=== PATIENT | male | born 1975 | race African-American/Black ===

== ENCOUNTER 2024-10-10 11:19 | Inpatient (IN) | payer OTHER ==
[2024-10-10] MEDS ORDERED: MAG HYDROX/AL HYDROX/SIMETH 30 ML UNIT-DOSE CUP PO PRN (15:14)
[2024-10-10] MEDS ORDERED: IBUPROFEN 600 MG TABLET (FP) PO PRN (15:14)
[2024-10-10] MEDS ORDERED: BENZOCAINE/MENTHOL (CHLORASEPTIC ) LOZENGE MM PRN (15:14)
[2024-10-10] MEDS ORDERED: IBUPROFEN 400 MG TABLET (FP) PO PRN (15:14)
[2024-10-10] MEDS ORDERED: NALOXONE (NARCAN) HCL 4 MG/0.1 ML SPRAY NS PRN (15:14)
[2024-10-10] MEDS ORDERED: LOPERAMIDE HCL 2 MG CAPSULE PO PRN (15:14)
[2024-10-10] MEDS ORDERED: NALOXONE HCL 0.4 MG/ML VIAL IVPUSH PRN (15:14)
[2024-10-10] MEDS ORDERED: BENZONATATE 200 MG CAPSULE PO PRN (15:14)
[2024-10-10] MEDS ORDERED: guaiFENesin 600 MG TABLET.ER (FP) PO PRN (15:14)
[2024-10-10] MEDS: TUBERCULIN PPD 5 TU/0.1ML VIAL ID ONE (16:05)
[2024-10-10] MEDS ORDERED: ATORVASTATIN CA 40 MG TABLET (FP) ONE (20:23)
[2024-10-10] MEDS: ATORVASTATIN CA 80 MG TABLET (FP) PO SCH (21:12)
[2024-10-10] MEDS: THIAMINE 100 MG TABLET PO SCH (21:13)
[2024-10-10] MEDS: FAMOTIDINE 20 MG TABLET PO SCH (21:13)
[2024-10-10] MEDS: MELATONIN 5 MG TABLETS PO SCH (21:13)
[2024-10-10] MEDS: APIXABAN 5 MG TABLET PO SCH (21:13)
[2024-10-10] MEDS: SUVOREXANT 10 MG TABLET PO PRN (21:15)
[2024-10-11] MEDS: BICTEGRAV/EMTRICIT/TENOFOV (BIKTARVY) 50-200-25 MG TABLET PO SCH (07:05)
[2024-10-11] MEDS: PRENATAL VITAMINS W/ FOLIC ACID TABLET (FP) PO SCH (09:43)
[2024-10-11] MEDS: LISINOPRIL 20 MG TABLET PO SCH (09:43)
[2024-10-11] MEDS: NICOTINE 21 MG/24 HOURS TOPICAL PATCH TD SCH (09:43)
[2024-10-11] MEDS: NIFEdipine E.R 60 MG TABLET PO SCH (09:44)
[2024-10-11] MEDS: BUPRENORPHINE/NALOXONE 8 MG/2 MG FILM PACKET SL SCH (10:30)
[2024-10-11] MEDS ORDERED: ATORVASTATIN CA 40 MG TABLET (FP) ONE (19:36)
[2024-10-13] MEDS ORDERED: ATORVASTATIN CA 40 MG TABLET (FP) ONE (21:10)
[2024-10-14] MEDS: MAGNESIUM HYDROX 2400MG/30ML ORAL SUSPENSION 30 ML CUP PO PRN (15:37)
[2024-10-14] MEDS ORDERED: ATORVASTATIN CA 40 MG TABLET (FP) ONE (19:19)
[2024-10-14] MEDS: SUVOREXANT 10 MG TABLET PO PRN (21:10)
[2024-10-15] MEDS: BICTEGRAV/EMTRICIT/TENOFOV (BIKTARVY) 50-200-25 MG TABLET PO SCH (06:21)
[2024-10-15] MEDS: POLYETHYLENE GLYCOL (HEALTHYLAX) 3350 17 GM PACKET PO PRN (13:54)
[2024-10-15] MEDS ORDERED: ATORVASTATIN CA 40 MG TABLET (FP) ONE (19:33)
[2024-10-15] MEDS: METHOCARBAMOL 500 MG TABLET PO PRN (21:58)
[2024-10-16] MEDS ORDERED: ATORVASTATIN CA 40 MG TABLET (FP) ONE (19:14)
[2024-10-16] MEDS: SUVOREXANT 10 MG TABLET PO PRN (21:03)
[2024-10-17] MEDS: DOCUSATE SODIUM 100 MG CAPSULE (FP) PO SCH (11:43)
[2024-10-17] MEDS: CLOPIDOGREL BISULFATE 75 MG TABLET (FP) PO SCH (11:43)
[2024-10-17] MEDS: LACTULOSE 20 GM/30 ML UDC (FOR ORAL USE ONLY) PO PRN (11:49)
[2024-10-17] MEDS: GABAPENTIN 300 MG CAPSULE PO SCH (14:18)
[2024-10-17] MEDS: RIVAROXABAN 20 MG TABLET PO SCH (18:53)
[2024-10-17] MEDS ORDERED: ATORVASTATIN CA 40 MG TABLET (FP) ONE (18:54)
[2024-10-17] MEDS: MIRTAZAPINE 15 MG TABLET (FP) PO SCH (21:08)
[2024-10-18] MEDS: EPLERENONE 25 MG TABLET PO SCH (09:46)
[2024-10-18] MEDS: ISOSORBIDE MONONITRATE 60 MG TAB.SR.24H (FP) PO SCH (09:46)
[2024-10-18] MEDS ORDERED: ATORVASTATIN CA 40 MG TABLET (FP) ONE (18:50)
[2024-10-18] MEDS: SUVOREXANT 15 MG TABLET PO PRN (21:05)
[2024-10-18] MEDS: SACUBITRIL/VALSARTAN 97 MG-103 MG TABLET PO SCH (21:05)
[2024-10-19] MEDS ORDERED: ATORVASTATIN CA 40 MG TABLET (FP) ONE (20:05)
[2024-10-20] MEDS ORDERED: ATORVASTATIN CA 40 MG TABLET (FP) ONE (19:13)
[2024-10-21] MEDS: hydrOXYzine PAMOATE 25 MG CAPSULE (FP) PO PRN (16:52)
[2024-10-21] MEDS ORDERED: ATORVASTATIN CA 40 MG TABLET (FP) ONE (19:49)
[2024-10-21] MEDS: SUVOREXANT 15 MG TABLET PO PRN (21:05)
[2024-10-22] MEDS ORDERED: ATORVASTATIN CA 40 MG TABLET (FP) ONE (19:41)
[2024-10-23] MEDS ORDERED: ATORVASTATIN CA 40 MG TABLET (FP) ONE (19:20)
[2024-10-24] MEDS ORDERED: ATORVASTATIN CA 40 MG TABLET (FP) ONE (19:32)
[2024-10-24] MEDS: SUVOREXANT 15 MG TABLET PO PRN (21:06)
[2024-10-25] MEDS: ACETAMINOPHEN 325 MG TABLET (FP) PO PRN (18:52)
[2024-10-25] MEDS ORDERED: ATORVASTATIN CA 40 MG TABLET (FP) ONE (19:25)
[2024-10-26] MEDS ORDERED: ATORVASTATIN CA 40 MG TABLET (FP) ONE (20:14)
[2024-10-27] MEDS: MUPIROCIN CA 2% TOPICAL CREAM 15 GM TUBE TP SCH (13:57)
[2024-10-27] MEDS: AMOX TR/POT CLAV 875MG/125MG TABLETS (FP) PO SCH (16:36)
[2024-10-27] MEDS ORDERED: ATORVASTATIN CA 40 MG TABLET (FP) ONE (19:29)
[2024-10-28] MEDS ORDERED: ATORVASTATIN CA 40 MG TABLET (FP) ONE (19:15)
[2024-10-29] MEDS ORDERED: ATORVASTATIN CA 40 MG TABLET (FP) ONE (19:46)
[2024-10-29] MEDS: SUVOREXANT 20 MG TABLET PO SCH (21:47)
[2024-10-30] MEDS ORDERED: PROPOFOL 20 ML ONE (09:08)
[2024-10-30] MEDS ORDERED: MIDAZOLAM HCL 2 MG/2 ML SINGLE DOSE VIAL ONE (11:16)
[2024-10-30] MEDS ORDERED: DEXAMETHASONE SOD PHOSPHATE 4 MG/1 ML VIAL ONE (11:16)
[2024-10-30] MEDS ORDERED: ONDANSETRON 4 MG/2 ML VIAL ONE (11:16)
[2024-10-30] MEDS ORDERED: ATORVASTATIN CA 40 MG TABLET (FP) ONE (19:16)
[2024-10-31] MEDS ORDERED: ATORVASTATIN CA 40 MG TABLET (FP) ONE (19:20)
[2024-11-01] MEDS ORDERED: ATORVASTATIN CA 40 MG TABLET (FP) ONE (19:27)
[2024-11-02] MEDS ORDERED: ATORVASTATIN CA 40 MG TABLET (FP) ONE (20:00)
[2024-11-03] MEDS ORDERED: ATORVASTATIN CA 40 MG TABLET (FP) ONE (19:22)
[2024-11-04] MEDS ORDERED: ATORVASTATIN CA 40 MG TABLET (FP) ONE (19:15)
[2024-11-04] MEDS: NICOTINE POLACRILEX 4 MG LOZENGE BC PRN (21:41)
[2024-11-05] MEDS: NICOTINE POLACRILEX 4 MG GUM BUC PRN (06:41)
[2024-11-05 06:48] VITALS: RESP 16; TEMP 97.2
[2024-11-05 09:10] VITALS: BP 154/85; PULSE 83
== END 2024-11-05 11:01 | disposition home or self-care (01) | DRG 772 ==
LOC: YASAS 11:19 → Y5N 11:21
PROVIDERS: ADMIT Psychiatry & Neurology Pain Medicine; ATTEND Psychiatry & Neurology Pain Medicine
PROC: HZ42ZZZ Group Counseling for Substance Abuse Treatment, Cognitive-Behavioral (ICD-10-PCS; principal; 2024-10-10)
DX: F11.20 Opioid dependence, uncomplicated (principal); F14.20 Cocaine dependence, uncomplicated; F10.20 Alcohol dependence, uncomplicated; F12.20 Cannabis dependence, uncomplicated; F17.210 Nicotine dependence, cigarettes, uncomplicated; Z21 Asymptomatic human immunodeficiency virus [HIV] infection status; E78.5 Hyperlipidemia, unspecified; G62.9 Polyneuropathy, unspecified; I10 Essential (primary) hypertension; K21.9 Gastro-esophageal reflux disease without esophagitis; K59.00 Constipation, unspecified; M54.50 Low back pain, unspecified; G89.29 Other chronic pain; I69.854 Hemiplegia and hemiparesis following other cerebrovascular disease affecting left non-dominant side; Z86.718 Personal history of other venous thrombosis and embolism; Z79.02 Long term (current) use of antithrombotics/antiplatelets
CPT/HCPCS: 80305; 82962

== ENCOUNTER 2025-01-17 17:10 | Inpatient (IN) | payer OTHER ==
[2025-01-17 17:57] VITALS: BMI 33.2
[2025-01-17] MEDS ORDERED: LOPERAMIDE HCL 2 MG CAPSULE PO PRN (18:45)
[2025-01-17] MEDS ORDERED: MAG HYDROX/AL HYDROX/SIMETH 30 ML UNIT-DOSE CUP PO PRN (18:45)
[2025-01-17] MEDS ORDERED: BENZOCAINE/MENTHOL (CHLORASEPTIC ) LOZENGE MM PRN (18:45)
[2025-01-17] MEDS ORDERED: NALOXONE (NARCAN) HCL 4 MG/0.1 ML SPRAY NS PRN (18:45)
[2025-01-17] MEDS ORDERED: DICYCLOMINE HCL 10 MG CAPSULE PO PRN (18:45)
[2025-01-17] MEDS ORDERED: NICOTINE POLACRILEX 2 MG GUM BUC PRN (18:45)
[2025-01-17] MEDS ORDERED: POLYETHYLENE GLYCOL (HEALTHYLAX) 3350 17 GM PACKET PO PRN (18:45)
[2025-01-17] MEDS ORDERED: NICOTINE POLACRILEX 2 MG LOZENGE BC PRN (18:45)
[2025-01-17] MEDS ORDERED: ONDANSETRON *ODT* 4 MG TABLET SL PRN (18:45)
[2025-01-17] MEDS ORDERED: BENZONATATE 200 MG CAPSULE PO PRN (18:45)
[2025-01-17] MEDS ORDERED: MAGNESIUM HYDROX 2400MG/30ML ORAL SUSPENSION 30 ML CUP PO PRN (18:45)
[2025-01-17] MEDS ORDERED: guaiFENesin 600 MG TABLET.ER (FP) PO PRN (18:45)
[2025-01-17] MEDS ORDERED: P-EPHED 60MG/TRIPROLIDI 2.5MG TABLET PO PRN (18:45)
[2025-01-17] MEDS: THIAMINE 100 MG TABLET PO SCH (22:23)
[2025-01-17] MEDS: MELATONIN 5 MG TABLETS PO SCH (22:23)
[2025-01-18 10:48] LABS: MCHC 32.1 g/dl (32.3-36.5); MEAN CELL VOLUME 93.1 fl (79.0-92.2); MEAN PLT VOLUME 11.5 fl (9.4-12.4); RDW 13.4 % (12.1-15.9)
[2025-01-18] MEDS: PRENATAL VITAMINS W/ FOLIC ACID TABLET (FP) PO SCH (10:50)
[2025-01-18 11:02] LABS: GLUCOSE,RANDOM 99 mg/dL (74-106); TOT PROT 7.3 g/dl (6.4-8.2)
[2025-01-18 11:03] LABS: CO2 21 mmol/L (21-32)
[2025-01-18 11:05] LABS: ALK PHOS 105 U/L (40-150)
[2025-01-18 11:07] LABS: SGPT/ALT 9 U/L (0-55)
[2025-01-18 11:08] LABS: CREATININE 0.79 mg/dL (0.55-1.3); SGOT/AST 15 U/L (5-34)
[2025-01-18] MEDS: LISINOPRIL 20 MG TABLET PO SCH (12:27)
[2025-01-18] MEDS: CLOPIDOGREL BISULFATE 75 MG TABLET (FP) PO SCH (12:27)
[2025-01-18] MEDS: BICTEGRAV/EMTRICIT/TENOFOV (BIKTARVY) 50-200-25 MG TABLET PO SCH (12:27)
[2025-01-18] MEDS: APIXABAN 5 MG TABLET PO SCH (12:27)
[2025-01-18] MEDS: ISOSORBIDE MONONITRATE 60 MG TAB.SR.24H (FP) PO SCH (12:28)
[2025-01-18] MEDS: SACUBITRIL/VALSARTAN 97 MG-103 MG TABLET PO SCH (22:03)
[2025-01-18] MEDS: FAMOTIDINE 20 MG TABLET PO SCH (22:03)
[2025-01-18] MEDS: ATORVASTATIN CA 80 MG TABLET (FP) PO SCH (22:03)
[2025-01-18] MEDS: METHOCARBAMOL 500 MG TABLET PO PRN (23:00)
[2025-01-19] MEDS: ACETAMINOPHEN 325 MG TABLET (FP) PO PRN (01:08)
[2025-01-19] MEDS: hydrOXYzine PAMOATE 25 MG CAPSULE (FP) PO PRN (01:10)
[2025-01-19 09:54] VITALS: BP 122/85; PULSE 85; RESP 15; TEMP 97.7
== END 2025-01-19 10:46 | disposition home or self-care (01) | DRG 775 ==
LOC: YASAS 17:10 → Y3N 20:30
PROVIDERS: ADMIT Neuromusculoskeletal Medicine & OMM; ATTEND Neuromusculoskeletal Medicine & OMM
PROC: HZ2ZZZZ Detoxification Services for Substance Abuse Treatment (ICD-10-PCS; principal; 2025-01-17)
DX: F10.230 Alcohol dependence with withdrawal, uncomplicated (principal); I25.10 Atherosclerotic heart disease of native coronary artery without angina pectoris; F17.210 Nicotine dependence, cigarettes, uncomplicated; E78.5 Hyperlipidemia, unspecified; I11.0 Hypertensive heart disease with heart failure; I50.9 Heart failure, unspecified; K21.9 Gastro-esophageal reflux disease without esophagitis; Z21 Asymptomatic human immunodeficiency virus [HIV] infection status; M54.50 Low back pain, unspecified; R26.81 Unsteadiness on feet
CPT/HCPCS: 36415; 80053; 80305; 80307; 85027; 86780